=== PATIENT | male | born 1960 | race Caucasian/White ===

== ENCOUNTER 2016-10-30 04:23 | Inpatient (IN) | payer OTHER ==
[~2016-10-30] VITALS: Ht 175.3 cm; Wt 103.4 kg
--- NOTE | 2016-10-30 04:45 | NUR ---
ED PHYSICIAN AT BEDSIDE FOR PATIENT EVALUATION. MEDICAL SCREENING EXAMINATION COMPLETED BY ED PHYSICIAN.
--- NOTE | 2016-10-30 04:59 | NUR ---
PT REPORTED TO ED WITH C/O EPIGASTRIC PAIN SINCE YESTERDAY. PT DENIES SOB, DIZZINESS. PT IS AAOX4, BREATHING EVEN AND UNLABORED, IN NO ACUTE DISTRESS.
--- NOTE | 2016-10-30 05:00 | NUR ---
PT TAKEN TO X-RAY VIA WHEELCHAIR.
[2016-10-30 05:13] LABS: CALCIUM 9.1 mg/dL (8.5-10.1); CHLORIDE SERUM 104 mmol/L (98-107); CREATININE SERUM 0.9 mg/dL (0.7-1.3); GFR1 > 60 mL/min; GLUCOSE SERUM 131 mg/dL (74-106); POTASSIUM SERUM 3.6 mmol/L (3.5-5.1); SODIUM SERUM 139 mmol/L (136-145)
[2016-10-30 05:19] LABS: ALKALINE PHOSPHATASE 130 U/L (46-116); ALT/SGPT 31 U/L (16-63); AMYLASE 64 U/L (25-115); AST/SGOT 22 U/L (15-37); BILIRUBIN TOTAL 0.4 mg/dL (0.20-1.00); LIPASE 719 IU/L (73-393); TOTAL PROTEIN, SERUM 8.2 g/dL (6.4-8.2)
[2016-10-30 05:32] LABS: BASOPHIL % 0.2 % (0-2)
--- NOTE | 2016-10-30 05:34 | NUR ---
US AT BEDSIDE
[2016-10-30 05:48] LABS: PLATELET COUNT 482 x10^3mcL (130-400)
[2016-10-30 07:27] LABS: MAGNESIUM 2.2 mg/dL (1.8-2.4)
--- NOTE | 2016-10-30 07:28 | NUR ---
REPORT GIVEN TO JENNY RAM FOR CONTINUATION OF CARE PRIMARY RN.
[2016-10-30 07:38] LABS: FREE T4 1.07 ng/dL (0.76-1.46); FREE THYROXINE INDEX 2.7 ug/dL (1.4-4.5); T3 TOTAL 1.06 ng/mL; T4(THYROXINE) 7.5 ug/dL (4.7-13.3)
[2016-10-30 07:39] LABS: UA SPECIFIC GRAVITY 1.025 (1.005-1.035); microscopic required? YES; urine erythrocyte 1+ (NEGATIVE)
[2016-10-30 07:47] VITALS: BP 165/90
--- NOTE | 2016-10-30 07:47 | NUR ---
RECEIVED PATIENT FROM ER. A/A/OX4; TELE#39 = SR; HR = 85; NO RESP DISTRESS ON RA. O2 SAT 99%. BREATHING SOUND CLEAR ZEKE. STATED UPPER ABD PAIN STARTED AT 7PM YESTERDAY, AND PAIN DOWN TO 4/10 NOW. NO N/V/D. ABD OBESE/SOFT. BOWEL SOUND ACTIVE. VOID FREELY. NPO PER ORDER. IVF OF NS 145CC/HR INFUSING WELL TO LAC. IV SITE CLEAN. AMBULATORY. PATIENT IS ESTONIAN SPEAKING ONLY. FAMILY AT BED SIDE FOR TRANSLATION. CALL LIGHT IN REACH.
[2016-10-30 07:57] LABS: AMPHETAMINE QUAL UR NONE DETECTED (NEG <=1000)
--- NOTE | 2016-10-30 08:30 | NUR ---
DR. RODRIGUEZ AND MEDICAL TEAM MADE MORNING ROUND. MONA JIMENEZ DISCUSSED WITH PATIENT, INCLUDED WITH POSSIBLE SURGERY TODAY. PATIENT WAS WORRIED ABOUT HIS MEDICAL INSURANCE UNABLE TO COVER. DR RODRIGUEZ EXPLAINED TO PATIENT THE IMPORTANCE OF SURGERY FOR GALL STONE. DR. CORLEY TRANSLATED KOREAN TO LITHUANIAN. PATIENT AGREED WITH PLAN OF CARE.
[2016-10-30 12:49] VITALS: BP 186/111
--- NOTE | 2016-10-30 12:49 | NUR ---
TEMP = 101.7; TYLENOL AND COOLING MEASURE GIVEN. C/O ABD PAIN ON 04/27; TOLRADOL 30MG IVP; B/P = 186/111; DR. RODRIGUE RODRIGUEZ.
--- NOTE | 2016-10-30 13:06 | NUR ---
DR. HAHN AWARE OF PATIENT'S B/P = 186/111; ORDER OF HYDRALAZIN 10MG IVP GIVEN.
[2016-10-30 14:00] VITALS: BP 170/100
--- NOTE | 2016-10-30 14:15 | NUR ---
B/P = 170/100; P = 86; METOPROLOL 2.5MG IVP GIVEN. RECHECKED TEMP = 98.8 ORAL.
[2016-10-30 16:46] VITALS: BP 172/100
--- NOTE | 2016-10-30 18:35 | NUR ---
STATED NO ABD PAIN. NO DISCOMFORT. B/P = 172/100; P=75. TEMP = 99.2. TOLERATED CLEAR LIQUID DIET. NO N/V. VOID FREELY VIA BRP. ENDORSED CARE TO NOC NURSE.
--- NOTE | 2016-10-30 19:26 | NUR ---
RECEIVED PATIENT IN BED AWAKE, ALERT AND ORIENTED UKRAINIAN SPEAKING WITH C/O BEARABLE ABDOMINAL PAIN . ABDOMEN ROUND AND NON TENDER WITH ACTIVE BS, TELE# 39 NSR ON MONITOR. IV TO LAC INTACT AND INFUSING WELL. NPO POST MIDNIGHT FOR SURGERY IN AM, CONDENT SIGNED. WILL CONTINUE TO MONITOR. CALL LIGHT WITHIN REACH.
[2016-10-30 21:49] VITALS: BP 168/99
--- NOTE | 2016-10-30 22:13 | NUR ---
TEMP-99.9, BP- 168/99 DR LIM MADE AWARE, WAITING FOR NEW ORDERS.
--- NOTE | 2016-10-30 22:21 | NUR ---
WITH NEW ORDERS FROM DR LIM, HYDRALAZINE 10MG IVP GIVEN. WILL CONTINUE TO MONITOR.
--- NOTE | 2016-10-30 23:09 | NUR ---
RECHECKED BP- 140/77/ T-98.7,IA-84. WILL CONTINUE TO MONITOR.
[2016-10-30 23:10] VITALS: BP 140/77
--- NOTE | 2016-10-30 23:54 | NUR ---
SLEEPING THIS TIME BREATHING EASY AND NONLABOR. WILL CONTINUE TO MONITOR.
--- NOTE | 2016-10-31 05:13 | NUR ---
SLEPT AT LONG INTERVALS DENIES PAIN THROUGHOUT THE SHIFT. ALL NEEDS ATTENDED. KEPT ON NPO.
[2016-10-31 05:38] VITALS: BP 172/98
--- NOTE | 2016-10-31 05:40 | NUR ---
BLOOD PRESSURE 169/99, HYDRALAZINE 10MG IVP GIVEN PRESCRIBED. WILL CONTINUE TO MONITOR.
[2016-10-31 06:23] LABS: BASOPHIL % 0.2 % (0-2); RED CELL DISTRIBUTION WIDTH 13.9 % (11.5-14.5)
[2016-10-31 06:30] LABS: PLATELET COUNT 435 x10^3mcL (130-400)
[2016-10-31 06:42] LABS: CALCIUM 8.4 mg/dL (8.5-10.1); CARBON DIOXIDE 28.1 mmol/L (21-32); CHLORIDE SERUM 102 mmol/L (98-107); CREATININE SERUM 0.9 mg/dL (0.7-1.3); GFR1 > 60 mL/min; GLUCOSE SERUM 100 mg/dL (74-106); PHOSPHOROUS 3.1 mg/dL (2.5-4.9); POTASSIUM SERUM 3.2 mmol/L (3.5-5.1); SODIUM SERUM 137 mmol/L (136-145)
--- NOTE | 2016-10-31 07:20 | NUR ---
RECEIVED PATIENT AWAKE/ALERT SAT AT THE SIDE OF BED, NO DISTRESS NOTED. DENIES PAIN AT THIS TIME. IV INTACT AND INFUSING WELL. REMIND PATIENT NPO FOR SURGERY. PATIENT VERBALIZE UNDERSTAND. NEEDS ANTICIPATED.
--- NOTE | 2016-10-31 07:40 | NUR ---
REPORT GIVEN TO TO 3.[address] GARCAI FOR REPLACE. WAITING FOR MD TO CALL BACK.
[2016-10-31 07:41] VITALS: BP 169/96
--- NOTE | 2016-10-31 07:55 | NUR ---
BEBETO CALL BACK INFORM ME IS KRIDER ORDER; CALL PAHRMACY TO VERTIFIED AND CARRY OUT ORDER.
--- NOTE | 2016-10-31 08:25 | NUR ---
PATIENT OFF FLOOR VIA GUERNEY WITH TRANSPORTOR AND DTR ACCOMPANIED. KRIDER 20 MEQ INFUSING WELL AND GOING WITH PATIENT.
--- NOTE | 2016-10-31 10:41 | NUR ---
JAZZY ROJAS CM CALL AND RN UPDATE PATIENT IS IN RECOVERY AT THIS TIME.
[2016-10-31 10:45] VITALS: BP 140/81
--- NOTE | 2016-10-31 10:45 | NUR ---
RECEIVED PATIENT FROM RECOVERY, AWAKE/ALERT IN BED NO DISTRESS NOTED; O2 2LNC SAT 96%; PER PATIENT PAIN 3/10 TO SURGICAL SITE. ABD X 4 BA AND ANGELICAG AT SITE C/D/I; VSS. CONNECT TO IV PUMP AND CONT IVF ORDERED. CALL LIGHT WITHIN REACH.
--- NOTE | 2016-10-31 11:09 | NUR ---
ASSIST PATIENT UP BATHROOM, AMBULATE WITH STEADY GAIT DENIES DIZZINESS; PAIN IS 3/10 C/O BURNING TO ABD. VOIDED NO PROBLEM. ANSWER QUESTIONS WITH EDGE KITTER Phil BAUTISTA) ASSIST WITH TRANSLATION. PATIENT RESTING IN BED AND CALL LIGHT WITHIN REACH.
--- NOTE | 2016-10-31 12:49 | NUR ---
PATIENT SIT UP IN BED STATE PAIN IS 4/10 COMFORTABLE; CLEAR LIQUID DTRAY GIVEN, UNASYN IVPB GIVEN AND SPIKE NEW BAG IVF; ICE WATER REFILLED. FAMILY MEMBERS AT BEDSIDE. CONT TO MONITOR.
[2016-10-31 13:18] VITALS: BP 130/63
--- NOTE | 2016-10-31 14:35 | NUR ---
DR. GARCIA AT BEDSIDE EXAM PATIENT AND DISCUSS PAIN CONTROL AND TX; FAMILY MEMBERS AT BEDSIDE. NEED ANTICIPATED.
[2016-10-31 16:25] VITALS: BP 153/85
--- NOTE | 2016-10-31 16:31 | NUR ---
PATIENT UP TO BATHROOM VOIDED AND BACK TO BED; PER PATIENT PAIN IS 4/10 TOLERABLE. NEEDS ANTICIPATED. ENCOURAGE USE INCENTIVE SPIROMETER WHILE IN BED.
--- NOTE | 2016-10-31 17:23 | NUR ---
PATIENT RESTING IN BED; NO COMPLAINT. EXPLAINED TO PATIENT NOT TO EAT OR DRINK FOR RENAL DOPPLER US ORDER BY DOCTOR. PATIENT VERBALIZE UNDERSTAND. USE INCENTIVE SPIROMETER 2000ML X 3; C/O ABD PAIN BUT DON'T WANT PAIN MED.
--- NOTE | 2016-10-31 17:40 | NUR ---
KCL 40MEQ PO X 1 PER DOCTOR ORDER EXTRA DOSE FOR K 3.2 .
--- NOTE | 2016-10-31 19:48 | NUR ---
RECEIVED PT FROM PREVIOUS SHIFT NURSE. PT AOX4. TELE # 39, SR, HR 95. DENIES CP/PRESSURE. PULSES PRESENT, NO EDEMA NOTED.LUNG SOUNDS CLEAR, ON RA. DENIES SOB/DIFFICULTY BREATHING. BOWEL SOUNDS ACTIVE. VOIDS FREELY. AMBULATORY. 4 BAND AIDS ON ABD WITH MILAN DRAIN IN PLACE. IV IN LAC, INTACT AND PATENT. BED IN LOWEST POSITION. CALL LIGHT WITHIN REACH. WILL CONTINUE TO MONITOR.
[2016-10-31 21:06] VITALS: BP 163/95
[2016-11-01] VITALS (7 sets, daily range): BP systolic 148–191; BP diastolic 85–103
--- NOTE | 2016-11-01 02:30 | NUR ---
PT RESTING IN BED. RR EVEN AND UNLABORED. NO ACUTE DISTRESS NOTED. CALL LIGHT WITHIN REACH. BED IN LOWEST POSITION. WILL CONTINUE TO MONITOR.
--- NOTE | 2016-11-01 05:45 | NUR ---
BP 175/[address] LIM NOTIFIED. WILL MEDICATE PER EMAR.
[2016-11-01 06:10] LABS: BASOPHIL % 0.2 % (0-2)
[2016-11-01 06:17] LABS: CALCIUM 8.2 mg/dL (8.5-10.1); CARBON DIOXIDE 28.1 mmol/L (21-32); CHLORIDE SERUM 106 mmol/L (98-107); CREATININE SERUM 0.8 mg/dL (0.7-1.3); GFR1 > 60 mL/min; GLUCOSE SERUM 98 mg/dL (74-106); POTASSIUM SERUM 3.7 mmol/L (3.5-5.1); SODIUM SERUM 141 mmol/L (136-145)
[2016-11-01 06:24] LABS: PLATELET COUNT 416 x10^3mcL (130-400); RED CELL DISTRIBUTION WIDTH 14.6 % (11.5-14.5)
--- NOTE | 2016-11-01 07:25 | NUR ---
PATIENT AWAKE/ALERT SAT AT SIDE OF BED; PAIN IS 3/10 AT SURGICAL SITE; IV INTACT AND INFUSING WELL; POC EXPLAINED AND ENCOURAGE PATIENT TO AMBULATE IN [place]CH TODAY. NEEDS ANTICIPATED.
--- NOTE | 2016-11-01 08:30 | NUR ---
PATIENT SAT UP AT SIDE OF BED, AT BEDSIDE. DR MICHAEL ZUNIGA MEDICAL TEAM ROUND EXPLAINED PATIENT'S CONDITION AND POC. PLANNING D/C ADVANCE DIET, AMBULATE, AND D/C MILAN DRAIN; POSS D/C HOME. ALL QUESTIONS ANSWER BY DOCTOR.
--- NOTE | 2016-11-01 08:55 | NUR ---
PATIENT WALK IN BUNCH AT THIS TIME, TOLERATED WELL.
--- NOTE | 2016-11-01 09:20 | NUR ---
PATIENT SAT UP IN BED NO COMPLAINT. ALL DUE MEDS GIVEN. NEEDS ANTICIPATED.
--- NOTE | 2016-11-01 11:54 | NUR ---
PATIENT SAT UP IN BED NO COMPLAINT; USE INCENTIVE SPIROMETER UP 2000ML. UNASYN IVPB GIVEN; IV PATENT. VISITORS AT BEDSIDE.
--- NOTE | 2016-11-01 14:05 | NUR ---
PATIENT RESTING IN BED NO COMPLAINT. GENO HOLLIS AT BEDSIDE TRANSLATE FOR PATIENT. INFORM PATIENT POSSIBLE D/C HOME AFTER SEEN BY SURGEON OR MAYBE IN AM PER DR. GARCIA. PATIENT REPORTED HAS BM X1 JUST FEW MIN. AGO. REPLACE NEW BAG IVF ORDERED; CONT TO MONITOR.
--- NOTE | 2016-11-01 14:41 | NUR ---
PT OLD IV SITE IS LEAKING, RE-INSERTED TO RFA WITH 22G.
--- NOTE | 2016-11-01 15:00 | NUR ---
PATIENT RESTING IN BED NO COMPLAINT. INFORM PATIENT DR. MAIRA FORRESTER REMOVED THE DRAIN, PATIENT LAYING COMFORTABLE IN BED; MILAN REMOVED WITH MINIMUMPAIN NOTED. DRESSING APPLIED TO SITE; REMOVED ALL 4 BA INCISION WITH LUIS F CLEAN AND DRY; CHANGED NEW BA X 4. EMPTIED MILAN 60ML SEROUS. PATIENT UP WALKING IN BUNCH.
--- NOTE | 2016-11-01 16:21 | NUR ---
DR. GARCIA SEEN PATIENT AND INFORM RN PATIENT IS DISCHARGE.
--- NOTE | 2016-11-01 17:00 | NUR ---
TAKING PICTURE OF ABD INCISION WOUNDS AND FILE IN THE CHART.
--- NOTE | 2016-11-01 17:32 | NUR ---
PATIENT BACK FROM WALKING, DINNER TRAY ON TABLE, UNASYN IVPB GIVEN. CONT TO MONITOR.
[2016-11-01] MEDS ORDERED: COLACE100 MG PO (17:45)
[2016-11-01] MEDS ORDERED: NORCO1 TA2 PO (17:46)
--- NOTE | 2016-11-01 18:33 | NUR ---
PATIENT RESTING IN BED DENIES PAIN; PATIENT STATE WHEN NURSE CHECK VITAL PATIENT GET NERVOUS; RECHECK BP X 2 191/103, MAP 132; DR GARCIA WAS INFORM.
[2016-11-01] MEDS ORDERED: LISINOPRIL10 MG PO (18:44)
--- NOTE | 2016-11-01 18:45 | NUR ---
DR GARCIA SEEN PATIENT AT THIS TIME; GIVE NEW ORDER FOR LISINOPRIL AND ATIVAN NOW DOSE; RECHECK BP IN AN HOUR IF SBP< 160 AND DBP< 100 MAY D/C PATIENT HOME. CALL PHARMACY TO VERTIFIED.
--- NOTE | 2016-11-01 18:58 | NUR ---
LISINOPRIL 10MG AND ATIVAN 1MG PO GIVEN, REPORT GIVEN TO ON-COMING NURSE. PER DR GARCIA PAGE HIM IF BP STILL HIGH AFTER RECHECK.
--- NOTE | 2016-11-01 19:53 | NUR ---
RECEIVED PT FROM PREVIOUS SHIFT NURSE. PT AOX4. TELE#39, SR, HR 74. DENIES CP/PRESSURE. PULSES PRESENT, NO EDEMA NOTED. LUNG SOUNDS CLEAR, ON RA. DENIES SOB/DIFFICULTY BREATHING. BOWEL SOUNDS ACTIVE. VOIDS FREELY. AMBULATORY WITHOUT ASSISTANCE. 4 BAND AIDS ON ABD. MILAN REMOVED AND DRESSED BY DAY SHIFT NURSE. IV IN RFA, INTACT AND PATENT. BED IN LOWEST POSITION. CALL LIGHT WITHIN REACH. WILL CONTINUE TO MONITOR.
--- NOTE | 2016-11-01 20:32 | NUR ---
PT BP 180/102, 198/[address] G[address] LIM NOTIFIED. PT NOTIFIED THAT HE WILL NOT BE GOING HOME TONIGHT DUE TO HIGH BLOOD PRESSURE. WILL MEDICATE PER EMAR. WILL CONTINUE TO MONITOR.
[2016-11-02 00:04] VITALS: BP 106/66
--- NOTE | 2016-11-02 00:21 | NUR ---
RECHECKED BP AFTER MEDICATION, BP IS NOT 106/66 HR 65. WILL CONTINUE TO MONITOR.
--- NOTE | 2016-11-02 02:13 | NUR ---
PT RESTING IN BED. RR EVEN AND UNLABORED. NO ACUTE DISTRESS NOTED. CALL LIGHT WITHIN REACH. WILL CONTINUE TO MONITOR.
--- NOTE | 2016-11-02 05:11 | NUR ---
PT BP 164/98, DR. LIM NOTIFIED. AWAITING LOPRESSOR ORDER TO BE VERIFIED.
[2016-11-02 05:39] VITALS: BP 164/98
[2016-11-02 06:45] LABS: BASOPHIL % 0.5 % (0-2)
[2016-11-02 06:51] LABS: PLATELET COUNT 456 x10^3mcL (130-400)
[2016-11-02 06:56] VITALS: BP 166/89
--- NOTE | 2016-11-02 06:56 | NUR ---
PT BP 166/[address] LIM PAGED, AWAITING CALL BACK. WILL ENDORSE TO DAY SHIFT NURSE.
--- NOTE | 2016-11-02 07:48 | NUR ---
PATIENT ALERT AND ORIENTED, WOLOF SPEAKING. TELE #39, REPORTS NO CHEST PAIN AT THIS TIME. PULSES PRESENT AND EQUAL, NO EDEMA NOTED. LUNG SOUNDS CTA, BREATHING EVEN AND UNLABORED. BS ACTIVE, LBM 11/02/16, REPORTS NORMAL FOR PATIENT, 5 BANDAIDS TO ABD CDI, ABD SOFT AND ROUND. AND TO BATHROOM NO PROBLEM. REPORTS NO PAIN AT THIS TIME. IV RFA, WNL. NS @145. AM LISINOPRIL GIVEN PER DOCTOR ORDERS. WILL REASSESS BP
[2016-11-02 08:35] VITALS: BP 169/84
[2016-11-02 11:56] VITALS: BP 150/98; BP 181/78
[2016-11-02 13:00] VITALS: BP 150/98
--- NOTE | 2016-11-02 14:26 | NUR ---
REVIEW D/C INSTRUCTIONS WITH PATIENT, VERBALLY ACKNOLEDGED UNDERSTANDING. D/C IV, CATHETER INTACT, TELE MONITOR OFF. SCRIPT GIVEN, BANDAIDS GIVEN. GETTING READY TO GO HOME. PICTURE TAKEN AND PUT IN THE CHART
--- NOTE | 2016-11-02 14:29 | NUR ---
GENO GOLDSTEIN TAKING HIM DOWN TO LOBBY
== END 2016-11-02 15:00 | disposition home or self-care (01) | DRG 417 ==
LOC: ED 04:23 → DU 06:25
PROVIDERS: Emergency Medicine; Surgery; ADMIT Family Medicine
PROC: 0FT44ZZ Resection of Gallbladder, Percutaneous Endoscopic Approach (ICD-10-PCS; principal; 2016-10-31 08:30)
DX: K81.0 Acute cholecystitis (principal); N17.0 Acute kidney failure with tubular necrosis; E87.2 Acidosis; E78.00 Pure hypercholesterolemia, unspecified; I16.0 Hypertensive urgency; E66.9 Obesity, unspecified; Z68.33 Body mass index [BMI] 33.0-33.9, adult; Z53.29 Procedure and treatment not carried out because of patient's decision for other reasons; E87.6 Hypokalemia
CPT/HCPCS: 83880; 84439; J0295; J0360; J1170; J1885; J2250; J3010; J3480; J3490; J7030; Q0092